=== PATIENT | female | born 1975 ===

== ENCOUNTER 2024-04-06 20:24 | Emergency (ER) | payer SELFPAY ==
[2024-04-06 20:31] VITALS: BP 120/70; PULSE 92; RESP 19; TEMP 98.2; BMI 26.1
== END 2024-04-06 21:15 | disposition left against medical advice (07) ==
LOC: JER 20:24
DX: Z53.21 Procedure and treatment not carried out due to patient leaving prior to being seen by health care provider (principal)
CPT/HCPCS: 99281-25